=== PATIENT | female | born 1965 | race Caucasian/White ===

== ENCOUNTER 2018-03-12 07:33 | Observation (INO) | payer OTHER ==
[2018-03-12] MEDS: CEFAZOLIN 2 GM/50 ML (PMX) 50 ML IVPB (11:00)
[2018-03-12] MEDS: SOD CHLORIDE 0.9% 1,000 ML IV (11:42)
[2018-03-12] MEDS ORDERED: LIDOCAINE 2% (SDV) 5 ML INJ (13:28)
[2018-03-12] MEDS ORDERED: MIDAZOLAM 1 MG/ML 2 ML INJ (13:28)
[2018-03-12] MEDS ORDERED: PROPOFOL 20 ML (13:28)
[2018-03-12] MEDS ORDERED: CEFAZOLIN 1 GM INJ (13:35)
[2018-03-12] MEDS ORDERED: FAMOTIDINE 20 MG INJ (13:36)
[2018-03-12] MEDS ORDERED: FENTAnyl 50 MCG/ML VIAL (13:36)
[2018-03-12] MEDS ORDERED: DEXAMETHASONE 4 MG/ML 1 ML INJ (13:36)
[2018-03-12] MEDS ORDERED: ONDANSETRON 4 MG INJ (13:36)
[2018-03-12] MEDS ORDERED: ACETAMINOPHEN 1000MG/100ML IV 100 ML (14:13)
[2018-03-12] MEDS ORDERED: ACETAMINOPHEN 1000MG/100ML IV 100 ML IVPB (15:00)
[2018-03-12] MEDS ORDERED: MEPERIDINE 25 MG INJ (15:18)
[2018-03-12] MEDS ORDERED: HYDROmorphONE 1 MG/5 ML IV SYRINGE IV ×2 (15:30)
[2018-03-12] MEDS ORDERED: oxyCODONE 5 MG TAB PO (15:30)
[2018-03-12] MEDS ORDERED: PROCHLORPERAZINE 10 MG INJ IV (15:30)
[2018-03-12] MEDS ORDERED: DIPHENHYDRAMINE 50 MG INJ IV (15:30)
[2018-03-12] MEDS ORDERED: hydrALAzine 20 MG INJ IV (15:30)
[2018-03-12] MEDS ORDERED: LABETALOL HCL 20MG INJ IV (15:30)
[2018-03-12] MEDS ORDERED: FENTAnyl 50 MCG/ML VIAL IV ×3 (15:30)
[2018-03-12] MEDS ORDERED: ONDANSETRON 4 MG INJ IV (15:30)
[2018-03-12] MEDS: MEPERIDINE 25 MG INJ IV (16:38)
[2018-03-12] MEDS: HYDROmorphONE 1 MG/5 ML IV SYRINGE IV (16:42)
[2018-03-12] MEDS: D5W-0.45 NACL + KCL 20 MEQ 1,000 ML IV ×2 (18:05→23:00)
[2018-03-12] MEDS: ONDANSETRON 4 MG INJ IV (19:43)
[2018-03-13] MEDS: METOCLOPRAMIDE 10 MG INJ IV (01:20)
[2018-03-13] MEDS: morphine 2 MG INJ IV (01:20)
[2018-03-13] MEDS: D5W-0.45 NACL + KCL 20 MEQ 1,000 ML IV ×3 (01:24→09:13)
== END 2018-03-13 15:10 | disposition home or self-care (01) ==
LOC: SDS 07:33 → REC 15:00 → MS1 17:51
DX: C50.912 Malignant neoplasm of unspecified site of left female breast (principal); C77.3 Secondary and unspecified malignant neoplasm of axilla and upper limb lymph nodes
CPT/HCPCS: 19301; 71045; 88307; 93005